=== PATIENT | male | born 2000 | race Two or more races ===

== ENCOUNTER 2021-09-15 22:14 | Emergency (ER) | payer SELFPAY ==
[~2021-09-15] VITALS: Ht 172.7 cm; Wt 136.1 kg
[2021-09-15] MEDS ORDERED: HYDROcodone-ACET 10/325MG TAB PO ONE (22:30)
[2021-09-16] MEDS ORDERED: MORPHINE SULFATE 4 MG/ML SYR/VIAL IM ONE (03:30)
[2021-09-16] MEDS ORDERED: MORPHINE SULFATE INJECTION 2 MG/ML SYRG IM ONE (03:30)
[2021-09-16 04:56] VITALS: BP 126/77
== END 2021-09-16 05:05 | disposition home or self-care (01) ==
LOC: EDBD 22:14 → ER 22:17
DX: S82.831A Other fracture of upper and lower end of right fibula, initial encounter for closed fracture (principal); W19.XXXA Unspecified fall, initial encounter; Y93.51 Activity, roller skating (inline) and skateboarding; Y92.89 Other specified places as the place of occurrence of the external cause; Y99.8 Other external cause status
CPT/HCPCS: 29515; 73600; 96372; 99283; J2270